=== PATIENT | male | born 1995 | race Caucasian/White ===

== ENCOUNTER 2016-04-03 06:33 | Emergency (ER) | payer OTHER ==
--- NOTE | 2016-04-03 07:34 | ED ---
ENT HPI - General Chief complaint: Dental/Oral Stated complaint: Dental Pain Time Seen by Provider: 04/03/16 07:09 Source: patient Mode of arrival: ambulatory Limitations: no limitations - History of Present Illness Initial comments: Complaining about dental pain, is located on the right upper jaw in a molar area but denies any trauma or fall does have a ongoing dental pain and he feels part of the tooth is to 8 and a nerve root is exposed. Denies any fever no chills no swelling of the face. Head no headaches no migraines no stiff neck no fever no chills review of system is unremarkable otherwise - Related Data Previous Rx's Medication Instructions Recorded Acetaminophen-Codeine 300-30mg 2 tab PO Q8H PRN #20 tablet 04/03/16 [Tylenol #3] Clindamycin [Cleocin] 300 mg PO Q6H #40 capsule 04/03/16 Allergies Allergy/AdvReac Type Severity Reaction Status Date / Time No Known Allergies Allergy Verified 04/03/16 06:57 Review of Systems ROS Statement: Those systems with pertinent positive or pertinent negative responses have been documented in the HPI. ROS Other: All systems not noted in ROS Statement are negative. Past Medical History Past Medical History: No Reported History History of Any Multi-Drug Resistant Organisms: None Reported Past Surgical History: No Surgical Hx Reported Additional Past Surgical History / Comment(s): urogenital Past Psychological History: ADD/ADHD Smoking Status: Current every day smoker Past Alcohol Use History: None Reported Past Drug Use History: None Reported General Exam - General Exam Comments Initial Comments: General: The patient is awake and alert, in no distress, and does not appear acutely ill. Skin: Skin is warm and dry and no rashes or lesions are noted. Eye: Pupils are equal, round and reactive to light, extra-ocular movements are intact; there is normal conjunctiva bilaterally. Ears, nose, mouth and throat: There are moist mucous membranes and no oral lesions. Right upper jaw wisdom tooth is about 50% decayed Neck: The neck is supple, there is no tenderness or JVD. Cardiovascular: There is a regular rate and rhythm. No murmur, rub or gallop is appreciated. Respiratory: To auscultation bilateral, no wheezing no rhonchi no distress respiratory rivera noticed Gastrointestinal: Soft, non-distended, non-tender abdomen without masses or organomegaly noted. There is no rebound or guarding present. Bowel sounds are unremarkable. Back: There is no tenderness to palpation in the midline. There is no obvious deformity. Musculoskeletal: Normal ROM, no tenderness, There is no pedal edema. There is no calf tenderness or swelling. No cords were appreciated. Neurological: CN II-XII intact, Cranial nerves III through XII are intact. There are no obvious motor or sensory deficits. Coordination appears grossly intact. Speech is normal. Psychiatric: Cooperative, appropriate mood & affect, normal judgment. Limitations: no limitations Course Vital Signs 04/03/16 06:55 Temperature 97.9 F Pulse Rate 102 H Respiratory 20 Rate Blood Pressure 132/75 O2 Sat by Pulse 99 Oximetry Disposition Clinical Impression: Pain, dental, Gum inflammation Disposition: HOME SELF-CARE Condition: Good Instructions: Toothache (ED) Additional Instructions: Advised to see the dentist as soon as possible Prescriptions: Acetaminophen-Codeine 300-30mg [Tylenol #3] 2 tab PO Q8H PRN #20 tablet PRN Reason: Pain Clindamycin [Cleocin] 300 mg PO Q6H #40 capsule
[2016-04-03] MEDS ORDERED: KETOROLAC 60 MG/2 ML VIAL IM STA (07:50)
[2016-04-03 07:54] VITALS: BP 147/79; PULSE 86; RESP 15; TEMP 98.1
== END 2016-04-03 08:13 | disposition home or self-care (01) ==
LOC: EC 06:33
DX: K05.10 Chronic gingivitis, plaque induced (principal); F17.200 Nicotine dependence, unspecified, uncomplicated
CPT/HCPCS: 99282; 96372; J1885

== ENCOUNTER 2019-11-23 01:02 | Emergency (ER) | payer OTHER ==
[2019-11-23 01:16] VITALS: BP 112/70; PULSE 112; RESP 18; TEMP 98
[2019-11-23] MEDS ORDERED: SILVER NITRATE APPLICATOR 1 EACH STICK..EA. TOPICAL STA (02:11)
[2019-11-23] MEDS ORDERED: IBUPROFEN 600 MG STARTER PACK 4 TAB BTL PO STA (02:13)
[2019-11-23] MEDS ORDERED: LIDOCAINE 1% INJ 10MG/ML (20 ML MDV) SQ ONE (02:13)
--- NOTE | 2019-11-23 03:03 | ED ---
Extremity Problem HPI - General Chief complaint: Extremity Problem,Nontraumatic Stated complaint: RT ingrown toenail Time Seen by Provider: 11/23/19 02:00 Source: patient Mode of arrival: ambulatory Limitations: no limitations - History of Present Illness Initial comments: 24-year-old male presents to the emergency Department with complaints of ingrown right great toenail. States this toe has been bothersome for several days but has been unable to see his primary care provider due to his work schedule. States over the last several days the toe has become more red and swollen. Patient denies any trauma or injury. He denies any fever or chills. Denies spontaneous drainage from the site. Denies history of diabetes or immune compromise. Has not taken anything for pain. - Related Data Previous Rx's Medication Instructions Recorded Acetaminophen-Codeine 300-30mg 2 tab PO Q8H PRN #20 tablet 04/03/16 [Tylenol #3] Clindamycin [Cleocin] 300 mg PO Q6H #40 capsule 04/03/16 Cephalexin [Keflex] 500 mg PO Q6HR #40 cap 11/23/19 Ibuprofen [Motrin] 600 mg PO Q8HR PRN #30 tab 11/23/19 Allergies Allergy/AdvReac Type Severity Reaction Status Date / Time No Known Allergies Allergy Verified 04/03/16 07:38 Review of Systems ROS Statement: Those systems with pertinent positive or pertinent negative responses have been documented in the HPI. ROS Other: All systems not noted in ROS Statement are negative. Past Medical History Past Medical History: No Reported History History of Any Multi-Drug Resistant Organisms: None Reported Past Surgical History: No Surgical Hx Reported Additional Past Surgical History / Comment(s): urogenital Past Psychological History: ADD/ADHD Smoking Status: Former smoker Past Alcohol Use History: None Reported Past Drug Use History: None Reported General Exam Limitations: no limitations General appearance: alert, in no apparent distress, other (this is a well- developed, well-nourished male in no acute distress. Presenting vital signs as follows: Temperature 98.0F, heart rate 112, respirations 18, blood pressure 112/70, pulse ox 97% on room air.) Respiratory exam: Present: normal lung sounds bilaterally. Absent: respiratory distress, wheezes, rales, rhonchi, stridor Cardiovascular Exam: Present: regular rate, normal rhythm, normal heart sounds. Absent: systolic murmur, diastolic murmur, rubs, gallop, clicks Extremities exam: Present: tenderness (Right great toe), normal capillary refill, other (There is soft tissue swelling, erythema noted over the right great toe over the lateral nail fold. There is scabbing and scant purulent drainage noted. Skin is otherwise pink, warm, dry. Cap refills less than 3 seconds. Pedal pulses 2+). Absent: normal inspection Neurological exam: Present: alert, oriented X3, CN II-XII intact Psychiatric exam: Present: normal affect, normal mood Skin exam: Present: warm, dry, intact, normal color. Absent: rash Course Vital Signs 11/23/19 01:12 Temperature 98 F Pulse Rate 112 H Respiratory 18 Rate Blood Pressure 112/70 O2 Sat by Pulse 97 Oximetry Procedures - Sisters Protocol (Time Out) Procedure Performed:: Ingrown toenail removal Performing Provider: Liliana Menon Nurse: Rebeca Vicente Timeout Date: 11/23/19 Timeout Time: 03:00 Patient Identification (2 identifiers required): Verbal, Arm Band, Name, B irthdate Patient/Legal Field Marketing Manager has Confirmed: Identity, Site, Procedure, Consent Site: Right great toe Site Marked: Yes Site Verified With Patient/Guardian: Yes Final Confirmation: Procedure, Site, Laterality - Procedures Initial comment: Right great ingrown toenail removal, wedge avulsion. Site was thoroughly cleansed with betadine solution. Site was then anesthetized by digital block of the great toe utilizing 6ml of 1% lidcaine without epi. Once anesthesia was achieved scissors were used to cut the lateral nail. Hemostats were used to remove the ingrown portion of the nail. Silver nitrate with then applied to nail matrix. Patient tolerated the procedure well without complications. Medical Decision Making - Medical Decision Making 24 old male patient presented to the emergency department today for evaluation of redness, swelling, pain to the right great toe. Physical examination did reveal evidence for ingrown toenail. The ingrown toenail was removed as d ocumented. Patient was started on Keflex. He is instructed to follow-up with his primary care physician for recheck in 1-2 days. Return parameters were discussed in detail. He verbalizes understanding and agrees with this plan. Disposition Clinical Impression: Ingrown right big toenail Disposition: HOME SELF-CARE Condition: Good Instructions (If sedation given, give patient instructions): Ingrown Nail (ED), Partial Nail Avulsion for Ingrown Nail (DC) Additional Instructions: Do warm soaks to the toe 3-4 times daily. Complete antibiotic prescription and full. Follow-up with Dr. tavares for recheck in 1-2 days. Return to the emergency department immediately for any new, worsening, or concerning symptoms. Prescriptions: Cephalexin [Keflex] 500 mg PO Q6HR #40 cap Ibuprofen [Motrin] 600 mg PO Q8HR PRN #30 tab PRN Reason: Pain Is patient prescribed a controlled substance at d/c from ED?: No Referrals: Roxanna Blas MD [Primary Care Provider] - 1-2 days Time of Disposition: 03:03
== END 2019-11-23 03:16 | disposition home or self-care (01) ==
LOC: EC 01:02
DX: L60.0 Ingrowing nail (principal); Z87.891 Personal history of nicotine dependence
CPT/HCPCS: 11730; 99282; J2001